=== PATIENT | male | born 1980 | race Caucasian/White ===

== ENCOUNTER 2022-02-26 08:38 | Emergency (ER) | payer SELFPAY ==
--- NOTE | 2022-02-26 08:46 | ED_ITS ---
HPI - Back Pain/Injury General: Chief Complaint: Back Pain/Injury Stated Complaint: left side back pain Time Seen by Provider: 02/26/22 08:40 Source: patient Mode of arrival: ambulatory Limitations: no limitations History of Present Illness: 41-year-old male presents emergency room complaining of abdominal pain he initially referred to left upper quadrant pain to the triage nurse sunrise him he is complaining of pain extending across both the right and left upper quadrant. He states that began initially couple weeks ago who began to prove it is more of the left side now. He is not noticing thing that exacerbates or relieves he was seen earlier this week at [facility] and he relates that he was told he had a gallbladder issue that they had done imaging. Those records were sent for from [facility] and reviewed see below Onset (ago): week(s) Timing: progressively worsening Severity: moderate Similar Symptoms Previously: Yes Quality: aching Radiation: abdomen Exacerbating factors: none Relieving factors: none Associated symptoms: Reports abdominal pain; Deny arthralgias, chills, change in bowel habits, difficulty walking, dysuria, fatigue, fecal incontinence, fever(s), hematuria, myalgias, nausea, numbness, syncope, tingling/numbness/burning, urinary frequency, urinary urgency, vomiting or weakness Work related injury: No Review of Systems Const: Denies: fever(s), chills or fatigue Card: Denies: chest pain, palpitations, edema or syncope GI: Reports: abdominal pain; Denies: nausea, vomiting, fecal incontinence or change in bowel habits : Denies: flank pain, difficulty urinating, dysuria, urinary urgency or hematuria Musc: Reports: back pain; Denies: neck pain Neuro: Denies: difficulty walking PFSH ED PFSH: Medical History Dyspepsia Surgical History No pertinent past surgical history Physical Exam Const: GENERAL APPEARANCE: cooperative and comfortable ORIENTATION/CONSCIOUSNESS: Yes awake, Yes oriented to person, Yes oriented to place and Yes oriented to time HENMT: COMMON NORMALS: normocephalic, atraumatic and hearing grossly normal bilaterally HEAD & SCALP: normocephalic and atraumatic Neck/C-Spine: COMMON NORMALS: no JVD Resp: COMMON NORMALS: normal respiratory effort, No retractions, No use of accessory muscles and clear to auscultation bilaterally AUSCULTATION: clear to auscultation bilaterally Cardio: COMMON NORMALS: no JVD, regular rate, regular rhythm and No murmurs present (Cardio) RATE: regular rate RHYTHM: regular rhythm GI: COMMON NORMALS: Soft to palpation and No hepatosplenomegaly present AUSCULTATION: Yes normoactive bowel sounds PALPATION: Yes Soft to palpation, No Tenderness to palpation present (GI), No Guarding due to palpation present (GI) and Yes No hepatosplenomegaly present Extremity: COMMON NORMALS: normal to inspection, capillary refill normal, no clubbing, cyanosis or edema, no calf tenderness and no pedal edema Neuro: SENSORIUM/ORIENTATION: Yes oriented to person, Yes oriented to place and Yes oriented to time Skin: COMMON NORMALS: no rashes or lesions noted GENERAL SKIN EXAM: no rashes or lesions noted Course Vital Signs: Vital signs: Vital Signs Pulse Rate 103 H 02/26/22 11:22 Respiratory Rate 14 02/26/22 11:22 Blood Pressure 133/92 02/26/22 11:22 Pulse Oximetry 97 02/26/22 11:22 MDM - Back Pain/Injury Medical Decision Making Records from [facility] reviewed. Liver enzymes are normal T bili was normal ultrasound the gallbladder was unremarkable there is no evidence of cholecystitis. He did get a little improvement with a GI cocktail I think this is likely related to dyspepsia and reflux will start on Protonix have him take it twice daily for 1 week then daily follow-up with his primary care. Return if he has any medication or melena. If this persist needs follow-up with primary care for possible EGD Medical Records I reviewed the patient's medical records. Labs I reviewed the patient's lab results. : 02/26/22 10:35 02/26/22 10:35 Laboratory Results WBC 7.3 10^3/uL (4.0-10.0) 02/26/22 10:35 RBC 5.44 10^6/uL (4.1-5.3) H 02/26/22 10:35 Hgb 15.4 g/dL (11.7-16.6) 02/26/22 10:35 Hct 46.5 % (42.0-52.0) 02/26/22 10:35 MCV 85.5 fl (80-94) 02/26/22 10:35 MCH 28.3 pg (28.0-34.0) 02/26/22 10:35 MCHC 33.1 g/dL (30.0-36.0) 02/26/22 10:35 RDW 12.6 % (12.1-15.1) 02/26/22 10:35 Plt Count 244 10^3/cmm (130-400) 02/26/22 10:35 MPV 8.8 fL (7.4-10.4) 02/26/22 10:35 Neut % (Auto) 52.7 % 02/26/22 10:35 Lymph % (Auto) 22.4 % 02/26/22 10:35 [place] % (Auto) 9.2 % 02/26/22 10:35 Eos % (Auto) 14.7 % 02/26/22 10:35 Baso % (Auto) 0.7 % 02/26/22 10:35 Neut # (Auto) 3.83 10^3/uL (1.8-7.7) 02/26/22 10:35 Lymph # (Auto) 1.6 10^3/uL (0.8-4.8) 02/26/22 10:35 [place] # (Auto) 0.7 10^3/uL (0.2-0.9) 02/26/22 10:35 Eos # (Auto) 1.1 10^3/uL (0.0-0.8) H 02/26/22 10:35 Baso # (Auto) 0.1 10^3/uL (0.0-0.1) 02/26/22 10:35 Nucleated RBC % (auto) 0 % 02/26/22 10:35 Nucleated RBCs # 0.0 /100WBC 02/26/22 10:35 Sodium 132 mmol/L (136-145) L 02/26/22 10:35 Potassium 4.1 mmol/L (3.5-5.1) 02/26/22 10:35 Chloride 97 mmol/L (98-107) L 02/26/22 10:35 Carbon Dioxide 25 mmol/L (22-29) 02/26/22 10:35 Anion Gap 14.1 (5-19) 02/26/22 10:35 BUN 9 mg/dL (6-20) 02/26/22 10:35 Creatinine 0.6 mg/dL (0.7-1.2) L 02/26/22 10:35 GFR Calculation 148.5 mL/min (90-130) H 02/26/22 10:35 Glucose 103 mg/dL (65-115) 02/26/22 10:35 Calculated Osmolality 273 mOsm/kg (285-295) L 02/26/22 10:35 Calcium 9.6 mg/dL (8.5-10.5) 02/26/22 10:35 Total Bilirubin 0.3 mg/dL (0.15-1.2) 02/26/22 10:35 AST 23 U/L (0-40) 02/26/22 10:35 ALT 20 U/L (0-41) 02/26/22 10:35 Alkaline Phosphatase 82 IU/L (40-130) 02/26/22 10:35 Total Protein 7.1 g/dL (6.6-8.7) 02/26/22 10:35 Albumin 4.2 g/dL (3.5-5.2) 02/26/22 10:35 Globulin 2.9 g/dL (1.3-4.6) 02/26/22 10:35 Urine Color Straw (Yellow) 02/26/22 10:25 Urine Appearance Clear (CLEAR) 02/26/22 10:25 Urine pH 6.5 (5-7) 02/26/22 10:25 Ur Specific [place] 1.005 (1.005-1.030) 02/26/22 10:25 Urine Protein Neg (Negative) 02/26/22 10:25 Urine Glucose (UA) Norm (Normal) 02/26/22 10:25 Urine Ketones Negative (Negative) 02/26/22 10:25 Urine Blood Neg (Negative) 02/26/22 10:25 Urine Nitrate Negative (Negative) 02/26/22 10:25 Urine Bilirubin Neg (Negative) 02/26/22 10:25 Urine Urobilinogen Norm mg/dL (Negative) 02/26/22 10:25 Ur Leukocyte Esterase Negative (Negative) 02/26/22 10:25 Discharge Plan Discharge Patient Disposition: Home Clinical Impression: Dyspepsia Condition: Stable Prescriptions: New Protonix 40 mg tablet,delayed release (DR/EC) 40 mg PO DAILY 28 Days Qty: 30 0RF Discharge Orders: Discharge ED (Routine); Ordered 02/26/22 Ordered By: Sidney Salas Discharge Diet: As Directed Discharge Activity: Increase activity as tolerated Patient Instructions: Opioid Safety Activity Restrictions/Additional Instructions: Follow up with your primary care doctor within the next week. Coding Level of Care Code ED Tensile Tester for Micky Fwd Exam Comprehensive
[2022-02-26 08:47] VITALS: BP 156/105; PULSE 108; RESP 17; O2SAT 96; BMI 36.3
[2022-02-26 10:31] LABS: Add Urine Microscopic? NO; Charge for UA Resulting for Rev
[2022-02-26 10:35] LABS: Bilirubin Urine Neg (Negative); Blood Urine Neg (Negative); Glucose Urine UA Norm (Normal); Ketones Urine Negative (Negative); Leukocyte Esterase Urine Negative (Negative); Nitrate Urine Negative (Negative); Protein Urine Neg (Negative); Specific Gravity, Urine 1.005 (1.005-1.030); Urine Appearance Clear (CLEAR); Urine Color Straw (Yellow); Urobilinogen Urine Norm (Negative); pH Urine 6.5 (5-7)
[2022-02-26 10:46] LABS: Basophils # 0.1 10^3/uL (0.0-0.1); Basophils % 0.7 %; Eosinophils # 1.1 10^3/uL (0.0-0.8); Eosinophils % 14.7 %; Hematocrit 46.5 % (42.0-52.0); Hemoglobin 15.4 g/dL (11.7-16.6); Lymphocytes # 1.6 10^3/uL (0.8-4.8); Lymphocytes % 22.4 %; Mean Corpuscular HGB Conc 33.1 g/dL (30.0-36.0); Mean Corpuscular Hemoglobin 28.3 pg (28.0-34.0); Mean Corpuscular Volume 85.5 fl (80-94); Mean Platelet Volume 8.8 fL (7.4-10.4); Monocytes # 0.7 10^3/uL (0.2-0.9); Monocytes % 9.2 %; Neutrophils # 3.83 10^3/uL (1.8-7.7); Neutrophils % 52.7 %; Nucleated Red Blood Cells % 0 %; Platelet Count 244 10^3/cmm (130-400); Red Blood Count 5.44 10^6/uL (4.1-5.3); Red Cell Distribution Width 12.6 % (12.1-15.1); White Blood Count 7.3 10^3/uL (4.0-10.0)
[2022-02-26 11:04] LABS: Alanine Aminotransferase 20 U/L (0-41); Albumin Level 4.2 g/dL (3.5-5.2); Alkaline Phosphatase 82 IU/L (40-130); Anion Gap 14.1 (5-19); Aspartate Amino Transferase 23 U/L (0-40); Blood Urea Nitrogen 9 mg/dL (6-20); Calcium 9.6 mg/dL (8.5-10.5); Carbon Dioxide 25 mmol/L (22-29); Chloride 97 mmol/L (98-107); Globulin 2.9 g/dL (1.3-4.6); Glomerular Filtration Rate 148.5 mL/min (90-130); Glucose 103 mg/dL (65-115); Osmolality Calculated 273 mOsm/kg (285-295); Potassium 4.1 mmol/L (3.5-5.1); Sodium 132 mmol/L (136-145); Total Bilirubin 0.3 mg/dL (0.15-1.2); Total Protein 7.1 g/dL (6.6-8.7)
[2022-02-26] MEDS: lidocaine 2% viscous 15 ML, aluminum-mag hydrox-simethicon 30 ML, sucralfate oral liq 1 GM PO (11:13)
[2022-02-26 11:22] VITALS: BP 133/92; PULSE 103; RESP 14; O2SAT 97
== END 2022-02-26 11:21 | disposition home or self-care (01) ==
PROVIDERS: Emergency Provider Family Medicine
DX: R10.13 Epigastric pain (principal)
CPT/HCPCS: 80053; 81003; 85025; 99283